=== PATIENT | female | born 1975 | race Caucasian/White ===

== ENCOUNTER 2017-06-07 10:06 | Emergency (ER) | payer MEDICAID ==
[~2017-06-07] VITALS: Ht 160 cm; Wt 55.8 kg
[~2017-06-07 10:06] MED LIST: ETODOLAC200 MG PO; FLEXERIL10 MG PO; LIDOCAINE 2% V100 M2 PO; MEDROL 4MG. DOSE4 MG PO; Mobic7.5 MG PO; NEURONTIN100 MG OR; NORCO 325 MG-101 TAB PO; PENICILLIN VK500 M1 PO; VALTREX1 GM PO
--- NOTE | 2017-06-07 10:29 | Emergency Room Report ---
History of Present Illness Time Seen by [id number] Presenting Problem in Triage Pt arrived:Walked Presenting Problem:PT REPORTS RIGHT LOWER ABD/PELVIC AREA PAIN X3 DAYS. PT REPORTS HAS BEEN N/V/D SINCE YESTERDAY, PT REPORTS PAIN WORSENS WITH MOVEMENT. 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 N Clinical Suspician of Infection? N Mental Status: 1 - Regular (Normal Baseline) Sepsis Risk:Low Sepsis Risk Have you (or family members/close friends) recently traveled outside the [place]? N If Yes, where/when: Have you had exposure to infectious disease within the past month? N TB? Other? Specify: 41 years old white female with no significant past medical history. She developed RIGHT lower quadrant pain 2 days ago followed by vomiting 10 times a day and multiple diarrhea. She denies bleeding per rectum black stool coffee- ground emesis or hematemesis. The pain is worsening since yesterday. She denies having flank pain dysuria or hematuria or frequency. She denies having back pain or leg pains. Source patient, RN notes reviewed, family Exam Limitations no limitations ALLERGIES Coded Allergies: hydromorphone (Severe, S-DIFF. BREATHING 07/01/16) acetaminophen (From DARVOCET-N) (Intermediate, SHORTNESS OF BREATH 07/01/16) propoxyphene (From DARVOCET-N) (Intermediate, SHORTNESS OF BREATH 07/01/16) History Medical History General CAD? No Angina: No [place]: No Hypertension? No Hyperlipidemia? No CHF? No DVT? No PE? No COPD? No Asthma? No Anemia? No GERD? No Gastric ulcers? No GI Bleed? No Hernia? No Thyroid Problems? No Hypothyroidism? No CVA? No Seizures? No Diabetes? No Renal Insuffiency? No End Stage Renal Disease? No UTI? No Stones? No BPH? No GB Disease: No Nephritic Syndrome? No Asplenia? No Hepatitis? No Sickle Cell Disease? No Arthritis? No Migraines? No Cataracts? No Glaucoma? No MRSA? No HIV? No TB? No Anxiety? No Depression? No Cancer? Yes Site: BREAST More? 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 Respiratory no symptoms reported Cardiovascular no symptoms reported Gastrointestinal see HPI, abdominal pain, diarrhea, nausea, vomiting Genitourinary no symptoms reported. Musculoskeletal no symptoms reported Skin no symptoms reported Psychiatric/Neurological no symptoms reported Physical Exam Vital Signs Vital Signs Date Time Temp Pulse Resp B/P Pulse O2 O2 Flow FiO2 Ox Delivery Rate 06/07 1536 72 18 112/70 100 06/07 1419 63 18 97/63 100 06/07 1326 62 18 117/51 100 06/07 1148 75 18 130/80 94 06/07 1039 89 18 139/90 94 06/07 1033 18 06/07 1011 98.3 93 18 140/79 100 - WBC >12,000 or <4,000 or 10% bands? 2 or more SIRS Criteria Met? B/P:140/79 MAP:99 Creatinine >2.0? UA output<0.5ml/kg/hr for 2 hrs? Platelet count >100,000? Lactate >2.0mmol/1? INR >1.2 or PTT > than 60 sec? Evidence of Organ Dysfunction? Provider documented clinical suspician of infection? N Sepsis Criteria Count: 1 Sepsis Risk: Low Sepsis Risk General Appearance normal appearance, WD/WN Eye Exam - bilateral eye normal exam, bilateral eye PERRL, bilateral eye EOMI Ear, Nose, Throat hearing grossly normal, normal ENT inspection Neck normal inspection, non-tender, supple, full range of motion Respiratory Status Yes: trachea midline, chest symmetrical, non tender chest. No: respiratory distress. Lung Sounds bilateral: normal breath sounds, lungs clear. Cardiovascular normal exam, regular rate/rhythm, no peripheral edema, no gallop, no JVD, no murmur, no rub, normal peripheral pulses Peripheral Pulses Pulses normal Yes Gastrointestinal normal bowel sounds, normal exam, soft, no organomegaly, no pulsatile mass, no guarding, no rebound, soft with focal RIGHT lower quadrant tenderness, without guarding or rigidity, no cross or rebound tenderness, positive bowel sounds. 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 No Results/Orders Laboratory Tests 06/07/17 1030: Magnesium 2.0 06/07/17 1030: Sodium 142, Potassium 3.3 L, Chloride 105, Carbon Dioxide 27, BUN 12, Creatinine 0.7, Estimated Creat Clear 94, Estimated GFR (MDRD) 93, Glucose 93, Calcium 8.8, Total Bilirubin 0.1 L, AST 10 L, ALT 9 L, Alkaline Phosphatase 60, Total Protein 7.4, Albumin 4.3, Globulin 3.1, Albumin/Globulin Ratio 1.4, Lipase 141, WBC 6.7, RBC 4.93, Hgb 10.7 L, Hct 36.3 L, MCV 73.5 L, RDW 16.1, Plt Count 362, MPV 7.7, Gran % 60.0, Gran # 4.0, Lymphocytes % 28.2, Monocytes % 7.4, Eosinophils % 3.7, Basophils % 0.7, Lymphocytes # 1.9, Monocytes # 0.5, Eosinophils # 0.2, Basophils # 0.1, PUBS MCHC 29.6 L, MCH 21.8 L, Opiates Screen NEGATIVE, Urine Methadone Screen NEGATIVE, Barbiturates NEGATIVE, Phencyclidine Screen NEGATIVE, Amphetamines Screen NEGATIVE, Benzodiazepines Screen NEGATIVE, Cocaine Screen NEGATIVE, Marijuana (THC) Screen NEGATIVE, Urine Color YELLOW, Urine Appearance CLOUDY, Urine pH 5.5, Ur Specific [place] >= 1.030, Urine Protein TRACE H, Urine Ketones NEGATIVE, Urine Blood 1+ H, Urine Nitrate NEGATIVE, Urine Bilirubin NEGATIVE, Urine Urobilinogen 0.2, Ur Leukocyte Esterase NEGATIVE, Urine RBC 3-5, Ur Squamous Epith Cells 10-20, Urine Bacteria 4+, Urine Mucus 4+, Urine Glucose NEGATIVE Current Medication Orders Sig/Gloria Start time Last Medication Dose Route Stop Time Status Admin Levofloxacin 0 .STK-MED ONE 06/07 1458 DC .ROUTE Loperamide HCl 0 .STK-MED ONE 06/07 1458 DC PO Potassium Chloride 0 .STK-MED ONE 06/07 1458 DC PO Loperamide HCl 4 MG ONCE ONE 06/07 1445 DC 06/07 PO 06/07 1446 1501 Potassium Chloride 40 MEQ ONCE ONE 06/07 1445 DC 06/07 PO 06/07 1446 1501 Levofloxacin/Dextrose 100 ML .STK-MED ONE 06/07 1416 DC IV Levofloxacin 500 MG ONCE ONE 06/07 1415 DC 06/07 PO 06/07 1416 1501 Levofloxacin/Dextrose 100 ML ONCE ONE 06/07 1415 DC 06/07 IV 06/07 1514 1418 Sodium Chloride 1,000 ML .STK-MED ONE 06/07 1146 DC IV Sodium Chloride 1,000 ML .Q1H1M 06/07 1145 DC 06/07 IV 06/07 1245 1145 Sodium Chloride 10 ML PRN PRN 06/07 1145 AC IV 06/08 1136 Famotidine 0 .STK-MED ONE 06/07 1031 DC IV Ketorolac 0 .STK-MED ONE 06/07 1031 DC Tromethamine .ROUTE Ondansetron HCl 0 .STK-MED ONE 06/07 1031 DC .ROUTE Diatrizoate Meglum/ 30 ML ONCE ONE 06/07 1030 DC 06/07 Diatrizoate Sod PO 06/07 1031 1027 Famotidine 20 MG ONCE ONE 06/07 1030 DC 06/07 IV 06/07 1031 1033 Ketorolac 30 MG ONCE ONE 06/07 1030 DC 06/07 Tromethamine IV 06/07 1031 1033 Ondansetron HCl 4 MG ONCE ONE 06/07 1030 DC 06/07 IV 06/07 1031 1033 Sodium Chloride 8 ML ONCE ONE 06/07 1030 DC IV 06/07 1031 Diatrizoate Meglum/ 0 .STK-MED ONE 06/07 1022 DC Diatrizoate Sod .ROUTE Orders Procedure Date/time Status DIET-NOTHING BY MOUTH 06/07 L Complete DIET-CLEAR LIQUID 06/07 D Active CULTURE, URINE 06/07 1030 Active MAGNESIUM 06/07 1024 Complete DIARRHEA PANEL, PCR 06/[address] ABD/PELVIS REQ 06/07 1023 Complete LIPASE 06/07 1023 Complete DRUG ABUSE SCREEN (10) 06/07 1023 Complete CBC WITH AUTO DIFF 06/07 1023 Complete CHEM 12 PROFILE 06/07 1023 Complete URINALYSIS/COMPLETE 06/07 1017 Complete URINE 06/07 1017 Complete Departure Departure Time of Disposition 1538 Disposition DC Home or Self Care(routine) Clinical Impression Primary Impression: Enteritis Secondary Impressions: Nausea & vomiting Condition STABLE Referrals Yasmin Levine MD Additional Instructions sh I DISUCSSED WITH PATIENT HER CT FINDINGS IN DETAILS, SHE WILL TRY A CLEAR LIQUIDS TRAY AND PO ABX. she tolerated po liquids, imodium, levaquinand postassium pills. I TOLD HER IF SHE CAN STOP VOMITING AND TAKE ABX BY MOUTH THAT I WILL DISCHARGE HER HOME. IF VOMIITING RETURNS OR SHE CAN NOT KEEP HER MEDICINE DOWN SHE IS TO RETURN TO THE ED FOR IV ABX. 1- OFF WORK X 3 DAYS. 2- BASIC HYGIENE, 3- CIPRO AND FLAGY. 4- ZOFRAN Q6 PRN NAUSEA 5- IMODIUM Q 6 FOR DIARRHEA. 6- BRAT diet 7- gorade 16 oz q 4 8- SEE PCP IN AM FOR FOLLOW UP ON DIARRHEA PANEL RESULTS. Discharge Counseling Counseled pt/family regarding diagnosis, test results, medications/RX, home care, follow up needs Prescriptions Current Visit Scripts Metronidazole (Flagyl) 500 MG PO Q8 #21 TAB CIPROFLOXACIN HCL (Cipro 250MG TAB) 250 MG PO BID #14 TAB Loperamide HCl (Imodium A-D) 2 MG PO Q6HP PRN DIARRHEA #12 CAPSULE Ref 1 Ondansetron (Zofran 4MG Odt) 4 MG PO Q6HP PRN NAUSEA AND VOMITING #12 ODT ED Critical Care Critical Care No If Critical Care minutes are documented, the time involved in the performance of seperately reportable procedures was not counted toward critical care time documented. I directly delivered medical care to this critically ill and/or injured patient. Timely evaluation and treatment was necessary to address the significant organ system(s) dysfunction present in this patient. at 1540
[2017-06-07 10:37] LABS: URINE BLOOD 1+ (NEG)
[2017-06-07 10:39] LABS: URINE BILIRUBIN - DIPSTICK NEGATIVE (NEG)
[2017-06-07 10:45] LABS: AMPHETAMINES/METAMPHETAMINES NEGATIVE ng/mL (<1000)
[2017-06-07 10:48] LABS: HEMOGLOBIN 10.7 g/dL (12.2-16.2); LYMPH # 1.9 K/mm3 (0.7-4.5); LYMPH % 28.2 % (10-50.0)
--- NOTE | 2017-06-07 13:48 | RADIOLOGY REPORT PS360 ---
CT ABD PELVIS W/ CONTRAST HISTORY: RLQ PAIN X 2 DAYS. Nausea vomiting diarrhea. 41-year-old. Patient Age: 41 years: Female Ordering Physician: Kirsten Coello MD TECHNIQUE: Helical CT scanning through abdomen and pelvis following 75 cc [id number].. Oral, enteric contrast also utilized.. Sagittal and coronal reconstructions on CT workstation. COMPARISON :None available FINDINGS Lung bases. Mild dependent atelectasis posterior lower lobes bilateral. Partially imaged 18 mm bleb at the medial left base . Abdomen pelvis LIVER. No lesions. Central biliary ducts upper normal prominence.. Overall normal size liver but noted right lobe measuring 20 cm length. Slight Generous but normal portal vein.. Spleen within normal limits. Normal size. Gallbladder. A moderate size. No calcified stones evident with CT. Probable sludge.. GI tract.: Stomach, satisfactory upper normal wall thickness distal stomach. Duodenal loop unremarkable. Small bowel. No dilatation. Unremarkable. Appendix identified and appears satisfactory. No evidence of appendicitis. Terminal ileum appears satisfactory. Upper normal wall thickness at tip of cecum. Large bowel.: Rapid transit of administered enteric contrast through the nondilated small bowel which is also pass through throughout majority of the the large bowel to the left colon. This pattern likely reflects Enteritis with air-fluid levels throughout the large bowel reflecting diarrhea & liquid stool, with liquid stool most evident at the right & transverse colon. Minimal residual solid stool left colon- thus suspect diarrhea may become worse within near future. Scattered diverticuli developing at the sigmoid colon.. Upper normal wall thickness at sigmoid colon most likely reflect lack of distention--. Difficult to exclude additional colitis here. Doubt but cannot totally exclude underlying process in sigmoid colon. Thus May warrant follow-up particularly if heme-positive stool Uterus. Nonenlarged girth of uterus with what appear to be probable fibroids Uterus. There is 2.5 cm fibroid suspect anterior myometrium. \Also a second lesion at the anterior right myometrium-with Mild enhancing wall to 18 mm probable partially enhancing fibroid. Right ovary 3.6 cm size and contains numerous follicles largest 12 mm size. Left ovary is smaller slightly smaller but also measures up to 3.5 cm size with a few small follicles throughout. No dominant cyst or mass. . Osseous structures unremarkable. No retroperitoneal nor mesenteric adenopathy or mass. No pelvic adenopathy. IMPRESSION: 1. Appendix appears normal. No evidence of appendicitis 2.. Enteritis: ... Prominent air-fluid levels & liquid stool throughout right & transverse colon to splenic flexure. Likely reflect impending worsening of diarrhea. Small bowel unremarkable. . 3.... Scattered developing diverticuli sigmoid colon but no discrete acute diverticulitis.. Mild wall thickening sigmoid colon most likely reflecting these changes along with lack of distention. Doubt additional colitis involving sigmoid colon. However may warrant follow-up to further evaluate this region particularly if heme-positive stools persist. 4. Slightly enlarged uterus with probable fibroids. Consider pelvic ultrasound if symptoms here. ... Suspect up to 2.5 cm fibroid anterior myometrium as well as a 1.8 cm enhancing wall fibroid anterior right myometrium aspect.q
[2017-06-07] MEDS ORDERED: CIPRO 250MG TA250 MG PO (14:35)
[2017-06-07] MEDS ORDERED: FLAGYL500 M1 PO (14:35)
[2017-06-07] MEDS ORDERED: IMODIUM A-D2 M3 PO (14:35)
[2017-06-07] MEDS ORDERED: ZOFRAN ODT4 MG PO (14:38)
[2017-06-07 15:47] VITALS: BP 112/70
== END 2017-06-07 16:01 | disposition home or self-care (01) ==
LOC: ER 10:06
PROVIDERS: Emergency Medicine
DX: K52.9 Noninfective gastroenteritis and colitis, unspecified (principal); F17.210 Nicotine dependence, cigarettes, uncomplicated
CPT/HCPCS: J2405; Q9967

== ENCOUNTER 2017-06-09 22:13 | Emergency (ER) | payer MEDICAID ==
[~2017-06-09] VITALS: Ht 160 cm; Wt 55.8 kg
--- NOTE | 2017-06-09 22:36 | Emergency Room Report ---
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 N Clinical Suspician of Infection? N Mental Status: 1 - Regular (Normal Baseline) Sepsis Risk:Low Sepsis Risk Have you (or family members/close friends) recently traveled outside the [place]? N If Yes, where/when: Have you had exposure to infectious disease within the past month? TB? Other? Specify: Source patient, RN notes reviewed, family, old records Exam Limitations no limitations Comment pt with abd pain lower abd with n/v with recent visit to ed was thought to have enteritis and continues with sx Cardiac Chest Pain Chest pain indicative of cardiac No Timing/Duration this evening Severity moderate ALLERGIES Coded Allergies: hydromorphone (Severe, S-DIFF. BREATHING 07/01/16) acetaminophen (From DARVOCET-N) (Intermediate, SHORTNESS OF BREATH 07/01/16) propoxyphene (From DARVOCET-N) (Intermediate, SHORTNESS OF BREATH 07/01/16) Home Medications Active Scripts Metronidazole (Flagyl) 500 MG PO Q8 #21 TAB Prov: 06/07/17 CIPROFLOXACIN HCL (Cipro 250MG TAB) 250 MG PO BID #14 TAB Prov: 06/07/17 Loperamide HCl (Imodium A-D) 2 MG PO Q6HP PRN DIARRHEA #12 CAPSULE Ref 1 Prov: 06/07/17 Ondansetron (Zofran 4MG Odt) 4 MG PO Q6HP PRN NAUSEA AND VOMITING #12 ODT Prov: 06/07/17 History Medical History General CAD? No Angina: No [place]: No Hypertension? No Hyperlipidemia? No CHF? No DVT? No PE? No COPD? No Asthma? No Anemia? No GERD? No Gastric ulcers? No GI Bleed? No Hernia? No Thyroid Problems? No Hypothyroidism? No CVA? No Seizures? No Diabetes? No Renal Insuffiency? No End Stage Renal Disease? No UTI? No Stones? No BPH? No GB Disease: No Nephritic Syndrome? No Asplenia? No Hepatitis? No Sickle Cell Disease? No Arthritis? No Migraines? No Cataracts? No Glaucoma? No MRSA? No HIV? No TB? No Anxiety? No Depression? No Cancer? Yes Site: BREAST More? 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 Respiratory denies cough, denies shortness of breath, denies wheezing Cardiovascular denies chest pain, denies palpitations, denies syncope Gastrointestinal see HPI, abdominal pain, nausea, vomiting Genitourinary denies: dysuria, frequency, hesitancy, hematuria. Musculoskeletal denies back pain, denies joint pain, denies joint swelling, denies neck pain Skin denies rash Psychiatric/Neurological denies headache, denies seizure Physical Exam Vital Signs Vital Signs Date Time Temp Pulse Resp B/P Pulse O2 O2 Flow FiO2 Ox Delivery Rate 06/10 0049 71 20 116/78 97 06/09 2244 72 20 126/88 97 06/09 2219 98.0 71 14 112/60 98 - WBC >12,000 or <4,000 or 10% bands? 2 or more SIRS Criteria Met? B/P:116/78 MAP:77 Creatinine >2.0? UA output<0.5ml/kg/hr for 2 hrs? Platelet count >100,000? Lactate >2.0mmol/1? INR >1.2 or PTT > than 60 sec? Evidence of Organ Dysfunction? Provider documented clinical suspician of infection? N Sepsis Criteria Count: 0 Sepsis Risk: Low Sepsis Risk General Appearance no apparent distress Eye Exam - bilateral eye PERRL, bilateral eye EOMI Ear, Nose, Throat normal ENT inspection Neck supple Respiratory Status No: respiratory distress. Lung Sounds bilateral: lungs clear. 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 No Results/Orders Laboratory Tests 06/10/17 0000: Urine Color YELLOW, Urine Appearance CLEAR, Urine pH 7.0, Ur Specific [place] 1.020, Urine Protein NEGATIVE, Urine Ketones NEGATIVE, Urine Blood NEGATIVE, Urine Nitrate NEGATIVE, Urine Bilirubin NEGATIVE, Urine Urobilinogen 0.2, Ur Leukocyte Esterase NEGATIVE, Urine WBC OCC, Ur Squamous Epith Cells OCC, Amorphous Sediment 1+, Urine Bacteria OCC, Urine Glucose NEGATIVE 06/09/172231: Amylase 30, Lipase 135, ESR 29 H 06/09/172231: Sodium 140, Potassium 3.4 L, Chloride 107, Carbon Dioxide 27, BUN 14, Creatinine 0.7, Estimated Creat Clear 94, Estimated GFR (MDRD) 93, Glucose 103, Calcium 8.7, Total Bilirubin 0.1 L, AST 12 L, ALT 15, Alkaline Phosphatase 55, Total Protein 6.6, Albumin 3.8, Globulin 2.8, Albumin/Globulin Ratio 1.4, WBC 7.8, RBC 4.26, Hgb 9.3 L, Hct 31.2 L, MCV 73.4 L, RDW 15.9, Plt Count 312, MPV 8.0, Gran % 52.8, Gran # 4.1, Lymphocytes % 37.5, Monocytes % 6.0, Eosinophils % 2.9, Basophils % 0.9, Lymphocytes # 2.9, Monocytes # 0.5, Eosinophils # 0.2, Basophils # 0.1, PUBS MCHC 30.2 L, MCH 22.2 L Current Medication Orders Sig/Gloria Start time Last Medication Dose Route Stop Time Status Admin Sodium Chloride 25 ML .STK-MED ONE 06/10 44 DC IV Ceftriaxone Sodium 0 .STK-MED ONE 06/10 34 DC .ROUTE Promethazine HCl 0 .STK-MED ONE 06/10 34 DC .ROUTE Sodium Chloride 100 ML .STK-MED ONE 06/10 34 DC IV Ceftriaxone Sodium 1 GM ONCE ONE 06/09 2345 DC 06/10 Sodium Chloride 50 ML IV 09/20 0014 0045 Promethazine HCl 12.5 MG ONCE ONE 06/09 2345 DC 06/10 IV 06/09 2346 0045 Sodium Chloride 25 ML ONCE ONE 06/09 2345 DC 06/10 IV 06/09 2359 0046 Sodium Chloride 1,000 ML .Q1H1M 06/09 2245 DC 06/09 IV 06/09 2345 2241 Sodium Chloride 10 ML PRN PRN 06/09 2245 AC IV 06/10 223 Ondansetron HCl 0 .STK-MED ONE 06/09 2237 DC .ROUTE Sodium Chloride 1,000 ML .STK-MED ONE 06/09 2237 DC IV Ondansetron HCl 4 MG ONCE ONE 06/09 223 DC 06/09 IV 06/09 223 224 Sodium Chloride 10 ML PRN PRN 06/09 223 AC IV 06/10 223 Orders Procedure Date/time Status DIET-NOTHING BY MOUTH 06/[address] ABD & PELVIS W/O CONTRAST 06/[address] SCAN REQ 06/09 2239 Complete LIPASE 06/09 2239 Complete SED RATE 06/09 2239 Complete DIARRHEA PANEL, PCR 06/09 2239 Active AMYLASE 06/09 2239 Complete IV SALINE LOCK 06/09 2230 Active URINALYSIS/COMPLETE 06/09 2230 Complete CBC WITH AUTO DIFF 06/09 2230 Complete CHEM 12 PROFILE 06/09 2230 Complete XRAY/CT/US XRAY/CT/US CT abdomen, pelvis CT interpretation by discussed w/radiologist Time results known: 58 CT Results normal/NAD Departure Departure Time of Disposition 58 Disposition DC Home or Self Care(routine) Clinical Impression Primary Impression: UTI (urinary tract infection) Qualifiers: Urinary tract infection type: acute cystitis Hematuria presence: without hematuria Qualified Code: N30.00 - Acute cystitis without hematuria Secondary Impressions: Anemia Qualifiers: Anemia type: unspecified type Qualified Code: D64.9 - Anemia, unspecified Condition STABLE Patient Instructions DI for Urinary Tract Infection (UTI) Additional Instructions fluids and stop flagyl and continue cipro and see pcp for follow up Discharge Counseling Counseled pt/family regarding diagnosis, test results, medications/RX, follow up needs ED Critical Care Critical Care No at 0103
[2017-06-09 22:44] LABS: LYMPH # 2.9 K/mm3 (0.7-4.5); LYMPH % 37.5 % (10-50.0)
[2017-06-09 22:48] LABS: HEMOGLOBIN 9.3 g/dL (12.2-16.2)
[2017-06-10 00:22] LABS: URINE BILIRUBIN - DIPSTICK NEGATIVE (NEG); URINE BLOOD NEGATIVE (NEG)
[2017-06-10 00:27] LABS: URINE SQUAMOUS CELLS OCC #/hpf (0-5)
[2017-06-10 01:57] VITALS: BP 116/78
--- NOTE | 2017-06-10 05:27 | RADIOLOGY REPORT PS360 ---
CT ABD PELVIS W/O CONTRAST CLINICAL INDICATION: Right-sided abdominal pain ABD PAIN ORDERING PHYSICIAN: Yasmin Levine MD PATIENT AGE: 41 years COMPARISON: 06/07/2017 TECHNIQUE: Axial images obtained with sagittal and coronal reformats. PROCEDURE: Oral Contrast: None IV Contrast: None . FINDINGS: Lung bases images show a small pneumatocele in the left lung base medially at 2 cm. A 3 mm subpleural nodules present in the left lower lobe posteriorly Gallbladder is contracted and mildly thickened. No radio opaque stones. The liver, spleen, adrenal glands, pancreas, kidneys, ureters, and urinary bladder have an unremarkable unenhanced CT appearance. There is a 12 mm left renal cyst No intestinal obstruction or free air. Unremarkable appendix. No evidence of diverticulitis. There is some residual contrast within the colon from a recent CT scan of 06/07/2017. No evidence of intestinal obstruction. There are few small lymph nodes in the retroperitoneum nonspecific The uterus is somewhat bulky. Previously described nodular area in the fundus not well demonstrated without contrast. No cul-de-sac fluid or focal inflammatory change. Cervix is also somewhat bulky. No acute bony anomalies. IMPRESSION: 1. No acute abdominal or pelvic findings. 2. Nonacute findings as described above. 3. Somewhat bulky cervix and uterus. Please correlate with clinical findings. Pelvic ultrasound may be of further value.
== END 2017-06-10 01:59 | disposition home or self-care (01) ==
LOC: ER 22:13
PROVIDERS: Emergency Medicine
DX: N30.00 Acute cystitis without hematuria (principal); Z79.899 Other long term (current) drug therapy; F17.210 Nicotine dependence, cigarettes, uncomplicated; Z85.3 Personal history of malignant neoplasm of breast

== ENCOUNTER → 2017-07-08 | Outpatient (CLI) | payer MEDICAID ==
[~2017-07-08] MED LIST changes: +CIPRO 250MG TA250 MG PO; +FLAGYL500 M1 PO; +IMODIUM A-D2 M3 PO; +ZOFRAN ODT4 MG PO
--- NOTE | 2017-07-08 19:13 | RADIOLOGY REPORT PS360 ---
US PELVIS-TRANSVAGINAL ONLY HISTORY: DUBpelvic pain Patient Age: 41 years: Female Ordering Physician: Thuy Casanova APRN TECHNIQUE: Transvaginal pelvic ultrasound COMPARISON :CT abdomen pelvis 06/09/2017 FINDINGS Uterus is enlarged with fibroid and thickened endometrium. : Uterus measures 10.5 cm length X 6 cm AP x 6.5 cm transverse. Uterine fibroid at fundus =: 3.2 x 2.5 x 2.4 cm This appears to indent and slightly distort the endometrial stripe towards fundus Endometrium measuring over 1.1 cm AP. scar noted. Nabothian cysts. Largest seen along the posterior margin cervical canal measuring up to 11 mm in length x 4.5 mm. Slightly smaller nabothian cyst 8 mm length seen along anterior aspect cervical canal Right ovary 4 cm x 2.35 cm x 4.1 cm. Right ovarian cyst 1.8 cm x 2.3 cm x 1.5 cm. Left ovary 3.6 x 2.6 x 2.4 cm. Left ovarian cyst at measured 1.8 cm. No fluid in cul-de-sac IMPRESSION: Uterus enlarged, with up to 3.2 cm fibroid at fundus,. & Thickened endometrium`~ 1.1 cm . Prominent right ovary which contains a 2.3 cm cyst Left ovary upper normal size with 1.8 cm cyst No fluid in cul-de-sac
--- NOTE | 2017-07-15 09:41 | RADIOLOGY REPORT PS360 ---
DIG MAMM-DX JAYLYN W/AVWS W/CAD, US BREAST-RT COMPLETE W/AXILLA, US BREAST-LT COMPLETE W/AXILLA Ordering Physician: Thuy Casanova APRN Patient Age: 41 years Female COMPARISON: May 2016 mammogram INDICATION:. 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 Today Palpable area at medial left breast;. Also follow-up scattered likely benign densities seen on previous ultrasound/mammography TECHNIQUE: 1. Digital bilateral mammogram w/ additional spot views palpable area medial left breast 2. Bilateral breast ultrasound including axillary survey DIGITAL BILATERAL MAMMOGRAM with Spot views Dense bone inhomogeneous planar pattern most evident towards upper-outer quadrant both breasts. This these areas of dense breast somewhat decrease sensitivity mammography LEFT BREAST mammograms with spot medial Compared to May 2016 there has been interval excisional biopsy a benign mass from the inferior, left breast 6 o'clock position. Multiple surgical clips are seen in this area from June 2016 benign lumpectomy.. There are there are 3 tiny punctate benign-appearing calcifications projected just medial biopsy region the on cc view biopsy &., appear scattered on the 90 degree views. These benign-appearing most likely calcifications Can be followed. Today the patient palpates a area at the medial slightly inferior left breast. The on mammography this appears to be fairly elongated ridge of tissue and/or related to scarring and not significant on mammography nor spot views. It can be followed. Moderate density throughout the remainder the breast appears similar. RIGHT BREAST mammogram: MLO and cc views appear stable. Would note new areas of significant concern. RIGHT BREAST ULTRASOUND including axilla survey comparison is made to May 2016. 12:00: Small 5 mm likely debris-filled cyst. 1:00: Small 9.8 mm length hypoechoic area likely clustered apocrine cyst feature. No significant change since prior study. No significant color Doppler flow. Can be followed. 3:00:. There is a 9.6 mm x 4 mm thin elongated hypoechoic area which was not seen before either reflects a ridge of tissue or developing small cluster of apocrine cyst. This can be followed 9:00 stable cluster of small apocrine cyst spanning just less than 10 mm. Similar to previous study, favor benign and can be followed.. Benign axillary left nodes LEFT BREAST ULTRASOUND including axillary survey . previous June 11, 2016 ultrasound left breast as comparison Large solid mass at 5:00 is been removed since the prior 2016study. There is a smaller mass measuring 14 mm mm length x 6 mm AP At the 3 o'clock position which appears fairly stable. Most likely a benign fibroadenoma... Although biopsy could confirm as benign character given its stable appearance and can be followed . Unremarkable of benign-appearing axillary lymph nodes. The largest node or improvement pair left nodes spans 3.8 cm left axilla but with normal cortex :... IMPRESSION........................... Left Breast: 1. postsurgical changes inferior LEFT breast from excisional resection of large benign fibroadenoma. 2. Ultrasound reveals stable 1.4 cm most likely benign fibroadenoma at 3 o'clock position LEFT breast.. It can be followed, or you may want to offer the patient ultrasound guided biopsy for definitive diagnosis. 3. The palpable area at medial LEFT breast reveals no significant findings on mammography nor ultrasound. Right Breast: 1. Stable appearance on mammography 2. Scattered most likely benign-appearing hypoechoic areas/cystic areas throughout right breast. There is a new elongated hypoechoic area at 3 o'clock position. Favor cluster apocrine cysts. Thus suggest a follow-up right breast ultrasound patient return in 6 months Suggest 6 month follow-up LEFT mammogram along with bilateral breast ultrasound to further address above features. BI-RADS CATEGORY: 3_Probably Benign-Short Term F/U RECOMMENDED FOLLOWUP: 6M 6MONTH FOLLOW-UP Left mammogram along with with bilateral breast ultrasound . (A letter has been sent to the patient regarding results of the study.)
== END ==
LOC: RAD 08:27
DX: N92.6 Irregular menstruation, unspecified (principal); N64.4 Mastodynia
CPT/HCPCS: G0204

== ENCOUNTER → 2017-08-06 | Outpatient (CLI) | payer MEDICAID ==
[2017-08-06 10:27] LABS: LYMPH # 2.2 K/mm3 (0.7-4.5); LYMPH % 29.7 % (10-50.0)
[2017-08-06 10:29] LABS: HEMOGLOBIN 10.5 g/dL (12.2-16.2)
== END ==
LOC: LAB 10:07
PROVIDERS: Obstetrics & Gynecology
DX: N93.8 Other specified abnormal uterine and vaginal bleeding (principal)

== ENCOUNTER → 2017-08-18 | Outpatient (CLI) | payer MEDICAID ==
--- NOTE | 2017-08-25 09:08 | RADIOLOGY REPORT PS360 ---
US BREAST-LT COMPLETE W/AXILLA, US MAMMOTOME-LT US ORGAN SITE (BREAST), DIG MAMM-DX UNI-LT W/CAD, -post biopsy Ordering Physician: Gildardo Rhodes MD Patient Age: 41 years Female INDICATION: Breast nodule 3 o'clock position seen on previous ultrasound... History resected fibroadenoma6-7:00 of COMPARISON: Bilateral mammogram May 2016, & left breast ultrasound 07/08/2017 =======FINDINGS AND PROCEDURE: --ULTRASOUND LEFT BREAST: The initial ultrasound again shows elongated thin hypoechoic stippled nodule at 3:00 left breast this measures 1.3 cm transverse x1.5 cm length x nearly 6 mm mm AP. Its position was confirmed and the best route for biopsy was determined by Dr. Carlos and technologist MW ------ULTRASOUND-GUIDED MAMMOTOME Bx with clip placement right breast] Following sterile preparation and local skin anesthesia and deep Xylocaine anesthetic placement we proceeded with subsequently mammotome biopsy Patient received 0.5 Xanax & 5 Lortab prior to this procedure for comfort and mild sedation. local skin anesthesia was placed . Small 2 mm incision was made in the skin by Dr. Carlos. As well as as well as deep anesthetic placement posterior to the lesion. I attempted aspirated lesion but did not aspirate. The 12-gauge mammotome needle was then passed under ultrasound guidance. A would note that the became difficult to identify after the attempted aspiration & placement of the deep Xylocaine along its posterior margin which partial obscured the lesion. However the needle was advanced along the inferior/ posterior aspect of the this nodule & multiple mammotome core biopsies were obtained. Under ultrasound observation it appears we removed significant portion of this nodule.. Patient tolerated procedure well.. At the end of procedure small clip with collagen plug was placed at the biopsy site.. I believe this clip present towards the anterior aspect of the biopsy region ------PATHOLOGY REPORT: Nonproliferative Fibrocystic change.. Negative for carcinoma On close inspection note tiny stippled hypoechoic areas throughout this density thus may indeed reflect a a apocrine cyst fibrocystic l structure.. (In contrast to the diffuse homogeneous solid appearance seen larger fibroadenoma biopsied May 2016)-. We feel we did biopsy this benign-appearing focus although would note that did become more to visualize but partial obscured after Xylocaine placed & procedure was under way.. I would suggest a follow-up left breast mammogram and ultrasound 6 months to further evaluate.. . ======== ------DIAGNOSTIC LEFT MAMMOGRAM post biopsy Postbiopsy left mammogram shows the postbiopsy clip marker at the lateral left breast at 3 o'clock position with associated postbiopsy changes. There is decreased density of glandular elements in this region reflecting postbiopsy changes. Numerous surgical vascular clips at the medial breast from previous excisional biopsy of fibroadenoma also again noted. Stable feature.. Stable small punctate calcifications medial breast IMPRESSION: 1. Ultrasound-guided mammotome vacuum assisted core bx w/ clip placement performed at left breast 3 o'clock position. 2. This targeted nodule did have tiny stippled hypoechoic areas throughout, which could reflect apocrine cysts &/fibrocystic feature-and thus may indeed be compatible with the pathology report (& this is in contrast diffusely homogeneously solid larger fibroadenoma biopsied May 2016)..However I would note that the targeted nodule became difficult to visualize and partially obscured after placing Xylocaine and a 6 month follow-up will be performed follow-up 3.. A 6 month follow-up left mammogram & left breast ultrasound suggested. BI-RADS CATEGORY: 2_Benign RECOMMENDED FOLLOWUP: 6M 6MONTH FOLLOW-UP Left mammogram and left breast ultrasound 6 months (A letter has been sent to the patient regarding results of the study.)
== END ==
LOC: RAD 09:42
DX: R92.8 Other abnormal and inconclusive findings on diagnostic imaging of breast (principal)
CPT/HCPCS: C2618; G0206-LT

== ENCOUNTER → 2017-08-21 | Outpatient (CLI) | payer MEDICAID ==
[~2017-08-21] MED LIST changes: +FERROUS SULFAT200 M1 PO; +HYDROCODONE-APA1 TA1 PO; +IRON TABLETS325 MG PO
[2017-08-21 09:33] LABS: HEMOGLOBIN 10.5 g/dL (12.2-16.2); LYMPH # 1.6 K/mm3 (0.7-4.5); LYMPH % 21.9 % (10-50.0)
[2017-08-21 09:42] LABS: URINE BLOOD 3+ (NEG)
[2017-08-21 09:50] LABS: URINE BILIRUBIN - DIPSTICK 1+ (NEG)
[2017-08-21 10:20] LABS: BUN 16 mg/dL (7-18); GFR (ESTIMATED) 111 ML/MIN (59-)
== END ==
LOC: LAB 08:54
PROVIDERS: Obstetrics & Gynecology
DX: N93.8 Other specified abnormal uterine and vaginal bleeding (principal); Z01.812 Encounter for preprocedural laboratory examination